=== PATIENT | female | born 1985 | race Caucasian/White ===

== ENCOUNTER 2016-04-26 | Emergency (ER) | payer SELFPAY ==
[~2016-04-26] VITALS: Ht 157.5 cm; Wt 52.3 kg
[~2016-04-26] MED LIST: NORE0.354 PO
[2016-04-26 00:31] VITALS: BP 121/79; RESP 18; O2SAT 100
--- NOTE | 2016-04-26 00:55 | ED.REPORT ---
HPI-Extremity Problem Upper Date of Service Apr 26, 2016 ED Provider: Sona Vences MD A right-handed 30 year old female with a history of lupus presents to the ED complaining of left handed pain. The pt noticed a scab on her left middle knuckle 1.5 weeks ago, though she did not have pain or remember where the scratch came from. Over the last four to five days, the area has become painful and started swelling. The redness and pain extends from her hand up her arm and into the left side of her neck. The pt has not attempted to open the swollen area in any way. She denies fever or chills, as well as IV drug or steroid use. Nursing Notes Stated Complaint: SWOLLEN LEFT HAND Chief Complaint: Skin Rash/Abscess Nursing Notes Reviewed: Yes Allergies: Coded Allergies: ibuprofen (Verified Allergy, Severe, upset stomach, 04/26/16) BLEEDING ISSUES Scheduled Clindamycin (Clindamycin) 300 Mg Capsule 300 MG PO QID Norethindrone (Nor-Q-D) 0.35 Mg Tablet 0.35 MG PO AM General Time Seen by MD: 00:54 Chief Complaint Other (Left hand pain) Hx Obtained From: Patient Arrived By: Walk-in Onset Occurred: More than a week ago... Symptom Duration: Since onset Recent Healthcare: No recent doctor visit, No recent hospitalization Similar Sx Previous: No Past Medical History Past Medical History Day's Palsy h/o migraines - reportedly being evaluated for MS Past Surgical History Reports: Tubal ligation Smoking History Current Every Day Smoker Social History Alcohol Use: "Social" Drug Use: THC Ambulatory Status Independent Review of Systems Review of Systems Note: lupus Constitutional: Denies: Chills, Fever Musculoskeletal: Reports: Extremity pain, Joint pain, Joint swelling, Neck pain , Denies: Back pain Complete sys rev & neg: except as marked. Cardiovascular: Denies: Chest pain GI: Denies: Abdominal pain Physical Exam Initial Vital Signs Vital Signs (First) Date Time Temp Pulse Resp B/P Pulse Ox O2 Delivery O2 Flow Rate FiO2 04/26/16 00:31 36.2 18 121/79 100 Room Air Initial VS: Reviewed General/Constitutional: Awake, Alert Neck: Atraumatic, Supple, Full range of motion Respiratory / Chest: Atraumatic, Breath sounds NL, Breath sounds = bilat, No respiratory distress Cardiovascular: Heart rate NL, Regular rhythm, Heart sounds NL Upper Extremity / MS: Atraumatic, Full range of motion Wrist / Hand: Full range of motion nonfluctuant, erythematous and edematous mass tender to palpation over the MCP joint of the left third digit small pustule at top sensation and motor intact distally FROM of left middle finger no lymphangitis Skin: Warm, Dry Neurologic: Oriented X3, Speech NL, No motor deficits, No sensory deficits Head / Eyes: Atraumatic, Normocephalic, PERRL, EOMI ENT: Atraumatic, Airway patent, Mucous membranes moist Abdomen: Atraumatic, Soft, Non-tender Back: Atraumatic, Full range of motion Lower Extremity / Pelvis / MS: Atraumatic, Full range of motion Psychiatric: Affect NL, Mood NL Interpretation & Diagnostics X-Ray Interpretation Xray Interpretation: no foreign body no osteomyelitis no acute findings X-Ray Ordered: Hand left Interpretation / Wet Read by: Wet read ED physician Procedures Incision & Drainage Abscess I & D Abscess: scant purulent drainage Time: 01:49 Procedure Performed by: ED physician Consent / Setup / Site Prep: Informed consent provided, Consent from patient , Time-out performed, Hand hygiene observed, Stand sterile technique, Standard surgical scrub, Sterile drapes applied Location of Abscess: left hand, third digit Skin Preparation Agent: Hibiclens - Chlorhexidine Local Anesthesia: Lidocaine 1% (4 mL) Incised Abscess with Scalpel: #11 Pus Drained: Small Post-Procedure / Complications: Dressing applied, No complications, Condition improved, Tolerated procedure well, Patient stable Re-Eval/Medical Decision Med Decision/Clinical Course 30-year-old female with past medical history of lupus that she is not treated for here with left hand pain and swelling over her third MCP. She is right-hand -dominant. Differential diagnosis includes but is not limited to abscess versus cellulitis versus contusion versus abrasion. Patient had very scant amount of purulent discharge after D jacques of the wound. I have given her a dose of clindamycin, and a prescription to go home with the same. She has been given the contact information for the hand clinic at [facility] for follow-up. I have conveyed to her how serious it is an important it is that she follow-up in hand clinic and she understands. She will return for any worsening symptoms. Source of Hx: Old records Re-Evaluation/Progress : Time of Eval: 01:49 Patient Status: Condition improved Re-Evaluation/Progress Note: Pt rechecked, who is comfortable. I&D is performed without complication. She is informed of her diagnosis and the plan for discharge. The pt understands and agrees with the plan. All questions were addressed at this time. Counseled Regarding: Diagnosis, Need for follow-up, When/why to return to ED Discharge & Departure Impression: Primary Impression: Hand abscess Disposition: Home Discharge Condition All VS Reviewed: Yes Condition: Stable Patient Instructions: Abscess (ED), Abscess Incision and Drainage (ED) Additional Instructions: Thank you for entrusting us with your care. Take Clindamycin as prescribed. Follow up with your primary care physician for further evaluation. Return to the emergency department if you develop any new or worsening symptoms. Call the hand clinic at [facility] tomorrow morning to arrange a follow up appointment. Referrals: [facility]ribcathie Attestation Portions of this note were transcribed by Dea Rodrigez. I, Dr. Vences personally performed the history, physical exam and medical decision-making; I reviewed and confirmed the accuracy of the information in the transcribed note. Signed by: Luis Angel Izquierdo, 04/26/2016 and 0229. copies to: [facility] Sona Vences MD Apr 26, 2016 00:55 DEA RODRIGEZ Apr 26, 2016 01:11
[2016-04-26] MEDS ORDERED: Lidocaine 1% 50 mL Inj NERVEBLOCK ONE (01:10)
[2016-04-26] MEDS ORDERED: CLIN-78 PO (02:09)
[2016-04-26 02:32] VITALS: BP 122/78; PULSE 70; RESP 16; O2SAT 100
--- NOTE | 2016-04-26 08:48 | DRSVH ---
PROCEDURE: X-RAY LEFT HAND, MINIMUM THREE VIEWS ([id number]) INDICATIONS: left hand swelling TECHNIQUE: 3 views of the hand(s) acquired. COMPARISON: [facility], , HAND MIN 3VW (LT), 05/30/2013, 18:12. FINDINGS: Bones: No fractures or dislocations. Carpal bones are normally aligned. No suspicious bony lesions . Soft tissues: No suspicious soft tissue calcifications. Dorsal soft tissue swelling. IMPRESSION: 1. No displaced fracture seen. If there is continued pain, followup exam or additional imaging such as MRI or CT could be performed for further assessment. 2. Although no bony erosions are identified, plain film radiography is relatively insensitive in the acute phases of osteomyelitis and may not demonstrate radiographic changes for 15 days. If acute ost eomyelitis is of clinical concern, nuclear medicine regional bone scan or MRI is recommended. Dictated by: Montez Franklin [facility] Interpreted: Christel Gorman MD on 04/26/2016 at 8:47 Transcribed by: AN on 04/26/2016 at 8:48 Approved by: Christel Gorman MD, PhD on 04/26/2016 at 16:30
== END 2016-04-26 02:20 | disposition home or self-care (01) ==
LOC: SED 00:25
DX: L02.512 Cutaneous abscess of left hand (principal); M32.9 Systemic lupus erythematosus, unspecified; F17.200 Nicotine dependence, unspecified, uncomplicated; Z88.6 Allergy status to analgesic agent